=== PATIENT | female | born 1995 | race Caucasian/White ===

== ENCOUNTER 2016-11-08 12:01 | Emergency (ER) | payer BC, OTHER, SELFPAY ==
[2016-11-08] MEDS ORDERED: Ibuprofen 600 MG TAB ONE (12:35)
[2016-11-08] MEDS ORDERED: Sulfameth/Trimethoprim DS 800-160mg TAB ONE (12:35)
[2016-11-08] MEDS ORDERED: Sodium Chloride Irrig Solution 250 ML BOT ONE (12:40)
== END 2016-11-08 12:50 | disposition home or self-care (01) ==
LOC: MADERS 12:01
DX: L02.31 Cutaneous abscess of buttock (principal); L03.317 Cellulitis of buttock
CPT/HCPCS: 10060

== ENCOUNTER 2016-11-17 18:50 | Emergency (ER) | payer OTHER | END 2016-11-17 19:35 | disposition home or self-care (01) | LOC: MADERS 18:50 | DX: S20.152A Superficial foreign body of breast, left breast, initial encounter (principal); L03.113 Cellulitis of right upper limb; Z86.14 Personal history of Methicillin resistant Staphylococcus aureus infection; Z79.2 Long term (current) use of antibiotics; X58.XXXA Exposure to other specified factors, initial encounter | CPT/HCPCS: 99283 ==